=== PATIENT | female | born 1995 | race African-American/Black ===

== ENCOUNTER 2019-02-15 22:17 | Emergency (ER) | payer MEDICAID ==
[~2019-02-15] VITALS: Ht 160 cm; Wt 49.0 kg
[2019-02-16] MEDS ORDERED: HYDROCODONE/ACETAMINOPHEN 5/325MG TABLET PO ONE (00:30)
[2019-02-16 02:40] VITALS: BP 101/50
== END 2019-02-16 02:51 | disposition home or self-care (01) ==
LOC: ER 22:17
DX: S09.8XXA Other specified injuries of head, initial encounter (principal); W18.39XA Other fall on same level, initial encounter; Y93.89 Activity, other specified; Y92.89 Other specified places as the place of occurrence of the external cause
CPT/HCPCS: 81025; 99283

== ENCOUNTER 2019-07-02 11:41 | Emergency (ER) | payer MEDICAID ==
[~2019-07-02] VITALS: Ht 165.1 cm; Wt 56.0 kg
[2019-07-02 12:50] LABS: BASOPHILS % 1.2 % (0.0-2.0); EOSINOPHILS % 0.1 % (0.0-5.0); HEMATOCRIT. 34.3 % (36.0-48.0); HEMOGLOBIN. 10.8 g/dL (12.0-16.0); LYMPHOCYTES % 26.5 % (20.0-50.0); MEAN CORPUSCULAR HEMOGLOBIN 20.8 pg (28.0-32.0); MEAN CORPUSCULAR VOLUME 66.4 fL (81.0-99.0); MEAN PLATELET VOLUME 7.2 fl (7.4-10.4); MONOCYTES % 4.5 % (2.0-8.0); NEUTROPHILS % 67.7 % (40.0-76.0); PLATELET 359 x1000/uL (130-400); RED BLOOD CELL COUNT 5.17 mill/uL (4.2-5.4); RED CELL DISTRIBUTION WIDTH 16.8 % (11.6-14.6)
[2019-07-02 12:57] LABS: PROTHROMBIN TIME 10.7 sec (9.6-11.0)
[2019-07-02 13:08] LABS: CHLORIDE 111 mEq/L (98-107)
[2019-07-02 13:15] LABS: CLARITY URINE CLOUDY (CLEAR); COLOR URINE YELLOW (YELLOW); KETONES URINE TRACE (NEGATIVE); LEUKOCYTE ESTERASE URINE 2+ (NEGATIVE); NITRITE URINE POSITIVE (NEGATIVE); OCCULT BLOOD URINE 2+ (NEGATIVE); PROTEIN URINE 1+ (NEGATIVE); SPECIFIC GRAVITY URINE 1.021 (1.005-1.030); UROBILINOGEN URINE 0.2 E.U./dL (0.2-1.0)
[2019-07-02 13:35] LABS: PLATELET ESTIMATE NORMAL
[2019-07-02 15:28] VITALS: BP 105/56
== END 2019-07-02 15:30 | disposition home or self-care (01) ==
LOC: ER 11:41
DX: N39.0 Urinary tract infection, site not specified (principal); R55 Syncope and collapse; D50.9 Iron deficiency anemia, unspecified; R74.8 Abnormal levels of other serum enzymes
CPT/HCPCS: 36415; 71045; 81003; 81025; 87077; 87186; 87804; 93005; 99284

== ENCOUNTER 2020-06-16 08:31 | Emergency (ER) | payer MEDICAID ==
[~2020-06-16] VITALS: Ht 162.6 cm; Wt 59.0 kg
[2020-06-16 08:35] VITALS: BP 138/82
== END 2020-06-16 09:33 | disposition left against medical advice (07) ==
LOC: ER 08:45
DX: Z53.21 Procedure and treatment not carried out due to patient leaving prior to being seen by health care provider (principal)
CPT/HCPCS: 93005

== ENCOUNTER 2020-06-17 14:42 | Emergency (ER) | payer MEDICAID ==
[~2020-06-17] VITALS: Ht 162.6 cm; Wt 55.0 kg
[2020-06-17] MEDS ORDERED: SODIUM CHLORIDE 0.9% 1,000 ML IV ONE (16:45)
[2020-06-17 17:04] LABS: HEMATOCRIT. 36.3 % (36.0-48.0); HEMOGLOBIN. 11.7 g/dL (12.0-16.0); MEAN CORPUSCULAR HEMOGLOBIN 21.1 pg (28.0-32.0); MEAN CORPUSCULAR VOLUME 65.2 fL (81.0-99.0); MEAN PLATELET VOLUME 7.4 fl (7.4-10.4); PLATELET 434 x1000/uL (130-400); RED BLOOD CELL COUNT 5.58 mill/uL (4.2-5.4); RED CELL DISTRIBUTION WIDTH 16.8 % (11.6-14.6)
[2020-06-17 17:08] LABS: CHLORIDE 109 mEq/L (98-107)
[2020-06-17 17:13] LABS: ETHANOL BLOOD < 10 mg/dL
[2020-06-17 17:18] LABS: CREATINE KINASE 133 IU/L (26-192)
[2020-06-17 17:19] LABS: HCG SCREEN NEGATIVE
[2020-06-17 17:44] LABS: CLARITY URINE CLOUDY (CLEAR); COLOR URINE YELLOW (YELLOW); KETONES URINE 3+ (NEGATIVE); LEUKOCYTE ESTERASE URINE 2+ (NEGATIVE); NITRITE URINE POSITIVE (NEGATIVE); OCCULT BLOOD URINE TRACE (NEGATIVE); PH URINE 5.5 (4.5-8.0); PROTEIN URINE NEGATIVE (NEGATIVE); UROBILINOGEN URINE 0.2 E.U./dL (0.2-1.0)
[2020-06-17 18:05] LABS: *BARBITURATES SCREEN URINE NEGATIVE (NEGATIVE); *BENZODIAZEPINES SCREEN URINE NEGATIVE (NEGATIVE); *COCAINE SCREEN URINE NEGATIVE (NEGATIVE); CANNABINOID URINE SCREEN NEGATIVE (NEGATIVE); METHADONE URINE SCREEN NEGATIVE (NEGATIVE); OPIATES URINE SCREEN NEGATIVE (NEGATIVE); PHENCYCLIDINE URINE SCREEN NEGATIVE (NEGATIVE)
[2020-06-17 18:08] LABS: *AMPHETAMINES SCREEN URINE PRESUMTIVE POSITIVE (NEGATIVE)
[2020-06-17] MEDS ORDERED: AZITHROMYCIN 500 MG TABLET PO SCH (18:30)
[2020-06-17] MEDS ORDERED: LIDOCAINE HCL/PF 1% 10 MG/ML 5ML VIAL IJ NR (18:30)
[2020-06-17] MEDS ORDERED: CEFTRIAXONE SODIUM 250 MG/VIAL IM NR (18:30)
[2020-06-17 19:58] LABS: PLATELET ESTIMATE NORMAL
[2020-06-17 20:16] VITALS: BP 127/81
== END 2020-06-17 20:20 | disposition home or self-care (01) ==
LOC: ER 14:51
DX: N39.0 Urinary tract infection, site not specified (principal); F19.10 Other psychoactive substance abuse, uncomplicated; F12.10 Cannabis abuse, uncomplicated; F15.10 Other stimulant abuse, uncomplicated
CPT/HCPCS: 36415; 80053; 80305; 80320; 81003; 81025; 82550; 84703; 85025; 87591; 96372; 99283; J0696; J3490; J7030; G0480

== ENCOUNTER 2021-02-23 01:29 | Emergency (ER) | payer MEDICAID ==
[~2021-02-23] VITALS: Ht 162.6 cm; Wt 55.0 kg
[2021-02-23 01:52] VITALS: BP 112/62
[2021-02-23] MEDS ORDERED: ONDANSETRON 4MG ODT PO ONE (02:00)
[2021-02-23 02:44] LABS: CLARITY URINE TURBID (CLEAR); COLOR URINE YELLOW (YELLOW); KETONES URINE TRACE (NEGATIVE); LEUKOCYTE ESTERASE URINE 3+ (NEGATIVE); NITRITE URINE POSITIVE (NEGATIVE); OCCULT BLOOD URINE 3+ (NEGATIVE); PH URINE >=9.0 (4.5-8.0); PROTEIN URINE 2+ (NEGATIVE); SPECIFIC GRAVITY URINE 1.027 (1.005-1.030)
[2021-02-23] MEDS ORDERED: CEPH500C2 MT (02:59)
[2021-02-23] MEDS ORDERED: CEPHALEXIN 250MG CAPSULE PO ONE (03:00)
== END 2021-02-23 03:24 | disposition home or self-care (01) ==
LOC: ER 01:29
DX: N39.0 Urinary tract infection, site not specified (principal); B96.20 Unspecified Escherichia coli [E. coli] as the cause of diseases classified elsewhere; R05 Cough; R09.89 Other specified symptoms and signs involving the circulatory and respiratory systems
CPT/HCPCS: 81003; 81025; 87077; 87086; 87186; 99283; Q0162

== ENCOUNTER 2021-06-05 19:40 | Inpatient (IN) | payer MEDICAID ==
[~2021-06-05] VITALS: Ht 162.6 cm; Wt 46.3 kg
[~2021-06-05 19:40] MED LIST: CEPH500C2 MT
[2021-06-05] MEDS ORDERED: ACETAMINOPHEN 325MG TABLET PO STA (22:27)
[2021-06-05] MEDS ORDERED: SODIUM CHLORIDE 0.9% 1000ML BAG (SEPSIS BOLUS) IV ONE (22:30)
[2021-06-05 22:45] LABS: CLARITY URINE TURBID (CLEAR); COLOR URINE YELLOW (YELLOW); KETONES URINE TRACE (NEGATIVE); LEUKOCYTE ESTERASE URINE 2+ (NEGATIVE); NITRITE URINE POSITIVE (NEGATIVE); OCCULT BLOOD URINE 1+ (NEGATIVE); PH URINE 6.5 (4.5-8.0); PROTEIN URINE 2+ (NEGATIVE); SPECIFIC GRAVITY URINE 1.019 (1.005-1.030)
[2021-06-06 00:22] LABS: BASOPHILS % 0.4 % (0.0-2.0); EOSINOPHILS % 0.2 % (0.0-5.0); HEMATOCRIT. 36.6 % (36.0-48.0); HEMOGLOBIN. 11.4 g/dL (12.0-16.0); LYMPHOCYTES % 22.4 % (20.0-50.0); MEAN CORPUSCULAR HEMOGLOBIN 20.6 pg (28.0-32.0); MEAN PLATELET VOLUME 8.8 fl (7.4-10.4); MONOCYTES % 7.8 % (2.0-8.0); NEUTROPHILS % 69.2 % (40.0-76.0); PLATELET 400 x1000/uL (130-400); RED BLOOD CELL COUNT 5.54 mill/uL (4.2-5.4); RED CELL DISTRIBUTION WIDTH 16.2 % (11.6-14.6)
[2021-06-06 00:23] LABS: CHLORIDE 105 mEq/L (98-107)
[2021-06-06 01:36] LABS: PLATELET ESTIMATE NORMAL
[2021-06-06] MEDS ORDERED: CEFTRIAXONE 1 G PREMIX 50 ML IV ONE (02:00)
[2021-06-06] MEDS ORDERED: DOXYCYCLINE 100 MG in DEXT 5% WATER 100 ML IV SCH (02:30)
[2021-06-06] MEDS ORDERED: METRONIDAZOLE 500 MG PREMIX 100 ML IV ONE (02:30)
[2021-06-06] MEDS ORDERED: METRONIDAZOLE 500MG TABLET PO SCH (02:45)
[2021-06-06 03:35] LABS: HCG SCREEN NEGATIVE
[2021-06-06] MEDS: ACETAMINOPHEN 325MG TABLET PO PRN ×2 (06:08→20:13)
[2021-06-06] MEDS ORDERED: CEFTRIAXONE 1 G PREMIX 50 ML IV SCH (08:45)
[2021-06-06] MEDS ORDERED: ONDANSETRON HCL 4MG/2ML INJ IV PRN (08:45)
[2021-06-06] MEDS ORDERED: CEFTRIAXONE 1,000 MG in DEXTROSE 5% WATER 50 ML IV SCH ×2 (09:00→21:00)
[2021-06-06] MEDS ORDERED: CEFTRIAXONE SODIUM 1 G/VIAL ONE (09:25)
[2021-06-06] MEDS ORDERED: METOCLOPRAMIDE HCL 10MG/2ML VIAL IV PRN (13:00)
[2021-06-06 15:00] VITALS: BP 93/55
[2021-06-06] MEDS: DOXYCYCLINE HYCLATE 100MG CAPSULE PO SCH (17:55)
[2021-06-06] MEDS: MEROPENEM 1,000 MG in SODIUM CHLORIDE 0.9% 100 ML IV SCH (17:56)
[2021-06-06 19:58] VITALS: BP 91/58
[2021-06-06 20:00] VITALS: BP 100/54
[2021-06-06] MEDS: METRONIDAZOLE 500MG TABLET PO SCH (23:15)
[2021-06-07] VITALS: BP 93/55
[2021-06-07] MEDS: MEROPENEM 1,000 MG in SODIUM CHLORIDE 0.9% 100 ML IV SCH ×3 (02:59→18:35)
[2021-06-07 04:00] VITALS: BP 95/59
[2021-06-07 06:59] LABS: *AMPHETAMINES SCREEN URINE NEGATIVE (NEGATIVE); *BARBITURATES SCREEN URINE NEGATIVE (NEGATIVE); *BENZODIAZEPINES SCREEN URINE NEGATIVE (NEGATIVE); *COCAINE SCREEN URINE NEGATIVE (NEGATIVE)
[2021-06-07 07:00] LABS: CANNABINOID URINE SCREEN NEGATIVE (NEGATIVE); METHADONE URINE SCREEN NEGATIVE (NEGATIVE); OPIATES URINE SCREEN NEGATIVE (NEGATIVE); PHENCYCLIDINE URINE SCREEN NEGATIVE (NEGATIVE)
[2021-06-07 07:12] LABS: BASOPHILS % 0.2 % (0.0-2.0); EOSINOPHILS % 0.2 % (0.0-5.0); HEMATOCRIT. 31.1 % (36.0-48.0); HEMOGLOBIN. 9.5 g/dL (12.0-16.0); LYMPHOCYTES % 26.6 % (20.0-50.0); MEAN CORPUSCULAR HEMOGLOBIN 20.5 pg (28.0-32.0); MEAN CORPUSCULAR VOLUME 66.9 fL (81.0-99.0); MEAN PLATELET VOLUME 7.9 fl (7.4-10.4); MONOCYTES % 12.7 % (2.0-8.0); NEUTROPHILS % 60.3 % (40.0-76.0); PLATELET 323 x1000/uL (130-400); RED BLOOD CELL COUNT 4.64 mill/uL (4.2-5.4)
[2021-06-07 07:25] LABS: CHLORIDE 110 mEq/L (98-107)
[2021-06-07] MEDS: METRONIDAZOLE 500MG TABLET PO SCH ×2 (09:04→20:02)
[2021-06-07] MEDS: DOXYCYCLINE HYCLATE 100MG CAPSULE PO SCH ×2 (09:04→18:48)
[2021-06-07 16:00] VITALS: BP 95/56
[2021-06-07 20:00] VITALS: BP 87/45
[2021-06-08] VITALS: BP 97/60
[2021-06-08] MEDS: MEROPENEM 1,000 MG in SODIUM CHLORIDE 0.9% 100 ML IV SCH ×2 (01:54→09:31)
[2021-06-08 04:00] VITALS: BP 91/50
[2021-06-08 08:00] VITALS: BP 94/52
[2021-06-08] MEDS: METRONIDAZOLE 500MG TABLET PO SCH (09:31)
[2021-06-08] MEDS: DOXYCYCLINE HYCLATE 100MG CAPSULE PO SCH (09:31)
[2021-06-08 12:00] VITALS: BP 94/57
[2021-06-08 16:00] VITALS: BP 93/54
[2021-06-08 16:41] VITALS: BP 94/82
[2021-06-08 19:10] LABS: NEISSERIA GONORRHOEAE NAA Negative (Negative)
== END 2021-06-08 17:15 | disposition home or self-care (01) | DRG 720 ==
LOC: ER 19:40 → MICUSO 06-06 02:34 → 6EST 06-06 15:32
PROVIDERS: ADMIT Internal Medicine; ATTEND Internal Medicine
DX: A41.9 Sepsis, unspecified organism (principal); N12 Tubulo-interstitial nephritis, not specified as acute or chronic; D64.9 Anemia, unspecified; B96.20 Unspecified Escherichia coli [E. coli] as the cause of diseases classified elsewhere; Z20.822 Contact with and (suspected) exposure to COVID-19; Z87.440 Personal history of urinary (tract) infections; Z90.49 Acquired absence of other specified parts of digestive tract; Z90.5 Acquired absence of kidney; Z79.899 Other long term (current) drug therapy; Z90.722 Acquired absence of ovaries, bilateral
CPT/HCPCS: 36415; 71045; 74176; 76830; 76856; 80048; 80053; 80305; 81003; 83605; 84145; 84703; 85025; 87077; 87186; 87210; 87426; 87491; 87591; 93005; 99285; J0696; J2185; J3490; J7030; J7040; J7050; J7060

== ENCOUNTER 2022-07-15 02:20 | Emergency (ER) | payer MEDICAID ==
[~2022-07-15] VITALS: Ht 162.6 cm; Wt 46.7 kg
[2022-07-15 02:31] VITALS: BP 94/54
== END 2022-07-15 06:19 | disposition left against medical advice (07) ==
LOC: ER 02:42
DX: Z53.21 Procedure and treatment not carried out due to patient leaving prior to being seen by health care provider (principal)